=== PATIENT | female | born 2000 | race Caucasian/White ===

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

== ENCOUNTER 2018-01-01 20:50 | Emergency (ER) | payer OTHER ==
[~2018-01-01] VITALS: Ht 165.1 cm; Wt 59.1 kg
[~2018-01-01 20:50] MED LIST: ADDERALL30 MG PO; LEXAPRO20 MG PO
[2018-01-01 20:56] VITALS: TEMP 98
[2018-01-01 21:31] LABS: BASO % 0.2 % (0.0-2.0); EOS # 0.1 (0.0-0.7); EOS % 1.1 % (0-4.0); GRAN # 8.2 (1.4-6.5); GRAN % 67.9 % (42.2-75.2); HEMOGLOBIN 12.4 g/dl (12.0-15.0); LYMPH # 2.7 (1.2-3.4); LYMPH % 22.6 % (20.0-51.0); MEAN CELL VOLUME 85 fl (80.0-95.0); MEAN CORPUSCULAR HEMOGLOBIN 30 pg (26.0-32.0); MEAN CORPUSCULAR HGB CONC 35 g/dl (33.0-37.0); MEAN PLATELET VOLUME 10.5 fl (7.4-10.4); MONO % 7.9 % (1.7-9.3); PLATELET COUNT 193 K/mm3 (130-400); RED BLOOD COUNT 4.19 M/mm3 (4.10-5.30); REDCELL DISTRIBUTION WIDTH-CV 14.8 % (11.5-14.5)
[2018-01-01 21:33] LABS: HEMATOCRIT 35.4 % (35.0-45.0)
[2018-01-01 21:39] LABS: ALANINE AMINOTRANSFERASE 27 U/L (9-52); ALBUMIN 4.5 gm/dL (3.5-5.0); ALKALINE PHOSPHATASE 61 U/L (50-136); ANION GAP 15 mmol/L (7-16); AST,SGOT 22 U/L (15-37); BILIRUBIN,TOTAL 0.5 mg/dL (0.0-1.0); BLOOD UREA NITROGEN 14 mg/dL (7-17); CALCIUM 9.4 mg/dL (8.4-10.2); CARBON DIOXIDE 22 mmol/L (22-30); CHLORIDE 103 mmol/L (98-107); CREATININE, serum 0.63 mg/dL (0.52-1.25); GLUCOSE 95 mg/dL (74-106); LIPASE 74 U/L (23-300); SODIUM 140 mmol/L (137-145); TOTAL PROTEIN 8.3 gm/dL (6.4-8.2)
[2018-01-01 21:57] LABS: HCG,QUANTITATIVE < 2 mIU/mL (0-5)
[2018-01-01 21:58] LABS: C-REACTIVE PROTEIN < 0.5 mg/dL (0.0-0.9)
[2018-01-01 22:15] LABS: COLLECTION METHOD CLEAN CATCH
[2018-01-01 22:20] LABS: PH 8 (5-8); SQUAMOUS EPITHELIAL 0-2 /hpf; URINE APPEARANCE Clear; URINE BACTERIA None Seen /hpf; URINE BILIRUBIN Negative (NEGATIVE); URINE BLOOD Negative (NEGATIVE); URINE COLOR Straw; URINE GLUCOSE Negative (NEGATIVE); URINE KETONE Negative (NEGATIVE); URINE LEUKOCYTE ESTERASE Negative (NEGATIVE); URINE NITRATE Negative (NEGATIVE); URINE PROTEIN(semi-quant) Negative (NEGATIVE); URINE RBC 0-2 /hpf; URINE UROBILINOGEN Negative (NEGATIVE)
[2018-01-01 23:15] VITALS: BP 110/47
[2018-01-01] MEDS ORDERED: NORCO 325 MG-51 TAB PO (23:51)
[2018-01-01] MEDS ORDERED: ZOFRAN ODT4 MG PO (23:51)
[2018-01-02 00:18] VITALS: PULSE 80
== END 2018-01-02 00:20 | disposition home or self-care (01) ==
LOC: COL.ER 20:50
PROVIDERS: Physician Assistant
DX: N83.202 Unspecified ovarian cyst, left side (principal)
CPT/HCPCS: J1885; J2405; J7030; Q9967

== ENCOUNTER → 2018-03-17 | Outpatient (CLI) | payer OTHER ==
[~2018-03-17] MED LIST changes: +NORCO 325 MG-51 TAB PO; +ZOFRAN ODT4 MG PO
== END ==
LOC: COL.RAD 15:34
DX: N83.202 Unspecified ovarian cyst, left side (principal)

== ENCOUNTER 2019-05-10 21:01 | Emergency (ER) | payer OTHER ==
[~2019-05-10] VITALS: Ht 165.1 cm; Wt 61.4 kg
[2019-05-10 22:41] VITALS: BP 132/72; PULSE 82; TEMP 98.4
== END 2019-05-10 22:42 | disposition home or self-care (01) ==
LOC: COL.ER 21:01
DX: S61.412A Laceration without foreign body of left hand, initial encounter (principal); J45.909 Unspecified asthma, uncomplicated; Z23 Encounter for immunization; W25.XXXA Contact with sharp glass, initial encounter; Y92.59 Other trade areas as the place of occurrence of the external cause

== ENCOUNTER → 2019-05-17 | Outpatient (CLI) | payer OTHER ==
[2019-05-17 13:10] VITALS: BP 106/62; PULSE 80; TEMP 98
== END ==
LOC: COL.ER 13:01
DX: S61.412D Laceration without foreign body of left hand, subsequent encounter (principal); X58.XXXD Exposure to other specified factors, subsequent encounter

== ENCOUNTER 2021-03-27 01:19 | Emergency (ER) | payer OTHER ==
[~2021-03-27] VITALS: Ht 167.6 cm; Wt 68.2 kg
[2021-03-27 01:42] VITALS: TEMP 98.2
[2021-03-27] MEDS ORDERED: AMOXICILLIN 8751 TAB PO (02:16)
[2021-03-27 03:08] VITALS: BP 108/56; PULSE 89
== END 2021-03-27 03:09 | disposition home or self-care (01) ==
LOC: COL.ER 01:19
DX: S61.251A Open bite of left index finger without damage to nail, initial encounter (principal); S71.152A Open bite, left thigh, initial encounter; S51.051A Open bite, right elbow, initial encounter; J45.909 Unspecified asthma, uncomplicated; Z20.3 Contact with and (suspected) exposure to rabies; W64.XXXA Exposure to other animate mechanical forces, initial encounter